=== PATIENT | female | born 1990 | race African-American/Black ===

== ENCOUNTER 2016-09-20 14:51 | Emergency (ER) | payer MEDICAID ==
[~2016-09-20] VITALS: Ht 149.9 cm; Wt 56.7 kg
[~2016-09-20 14:51] MED LIST: FERROUS SULFAT325 MG ORAL; IBUPROFEN600 MG ORAL; NKM; OVCON-351 EACH PO
[2016-09-20] MEDS ORDERED: Albuterol ud Inhalation HHN ONE (15:15)
--- NOTE | 2016-09-20 15:18 | Emergency Room Report ---
History of Present Illness General Chief Complaint: Flu Like Symptoms Source: Patient (Elisa Jha) Present Illness HPI 25 YO female presents to ED c/o cough, wheezing, nasal congestion x 3 days. reports subjective fevers and chills. took IBU 800 [employer]. denies recent travel. reports ill contact being treated for pneumonia ( her bf's nephew). pt denies productive cough. pt. reports wheezing as the main symptom. denies abdominal pain, rashes, neck pain/stiffness. Denies CP, Palpitations, LOC, AMS, dizziness , Changes in Vision, Sensation, paresthesias, or a sudden severe headache. (Elisa Jha) Allergies: Coded Allergies: No Known Allergies (Unverified , 07/14/13) Patient History Past Medical History: see triage record Past Surgical History: none Pertinent Family History: none Last Menstrual Period: 09/15/2016 Now: No : 0 Para: 0 Immunizations: UTD Reviewed Nursing Documentation: PMH: Agreed, PSxH: Agreed (Elisa Jha) Nursing Documentation-PMH Past Medical History: No Stated History (Elisa Jha) Review of Systems All Other Systems: negative except mentioned in HPI (Elisa Jha) Physical Exam Vital Signs Date Time Temp Pulse Resp B/P Pulse Ox O2 Delivery O2 Flow Rate FiO2 09/20/16 15:02 98.2 82 22 114/84 96 Room Air Sp02 EP Interpretation: reviewed, normal General Appearance: no apparent distress, alert, GCS 15, non-toxic Head: normocephalic, atraumatic Eyes: bilateral eye PERRL, bilateral eye normal inspection ENT: hearing grossly normal, normal pharynx, no angioedema, normal voice, TMs + canals normal, uvula midline Neck: full range of motion, supple/symm/no masses Respiratory: speaking full sentences, wheezing - expiratory and inspiratory wheezes bilaterally Cardiovascular #1: regular rate, rhythm, no edema, normal capillary refill Gastrointestinal: non tender, soft, no guarding, no rebound Rectal: deferred Genitourinary: normal inspection, no CVA tenderness Musculoskeletal: back normal, gait/station normal, normal range of motion, non- tender, no calf tenderness Neurologic: alert, oriented x3, responsive, motor strength/tone normal, sensory intact, speech normal Psychiatric: judgement/insight normal, memory normal, mood/affect normal, no suicidal/homicidal ideation Reflexes: 4+ bicep (R), 4+ bicep (L), 4+ tricep (R), 4+ tricep (L), 4+ knee (R) , 4+ knee (L) Skin: normal color, no rash, warm/dry, well hydrated Lymphatic: no adenopathy (Elisa Jha) Medical Decision Making PA Attestation Dr. Berman is my supervising Physician whom patient management has been discussed with. (Elisa Jha) Diagnostic Impression: Primary Impression: Bronchitis ER Course 25 YO female presents to ED c/o cough, wheezing, nasal congestion x 3 days. reports fevers and chills. took IBU 800 [employer]. denies recent travel. reports ill contact being treated for pneumonia ( her bf's nephew). denies abdominal pain , rashes, neck pain/stiffness Ddx considered but are not limited to URI, pneumonia, PE, strep pharyngitis, meningitis. Vital signs: Pt.is afebrile VS are WNL H&PE are most consistent with bronchitis, no evidence to suggest pneumonia at this time, no oral pharynx involvement, mild nasal congestion and rhinorrhea noted, no evidence of meningitis. ORDERS: none required at this time, the diagnosis is clinical ED INTERVENTIONS: -Albuterol Nebulized treatment --- upon re-evaluation pt. has scant wheezes, however wheezing has tremendously improved from initial assessment. DISCHARGE: At this time pt. is stable for d/c to home. Will provide printed patient care instructions, and any necessary prescriptions. Care plan and follow up instructions have been discussed with the patient prior to discharge. (Elisa Jha) ER Course I evaluated this patient in the ED at [facility] with my advanced practice provider (Physician Manager Supplier) colleague, who practices under my general supervision. My impressions concur with the advanced practice provider in regards to their obtained history of present illness, physical exam, general management, diagnosis, and disposition. In particular, I agree with PA-obtained interpretation of imaging, rhythm strip. For the evening and overnight shifts, we do not have the benefit of an in-house Radiologist to review xrays so our interpretation may be limited. Patients are to be discharged only with normal vital signs (or if we discussed a particular exception), a plan for follow-up care, and understand to return to the ED for worsening symptoms. Please see midlevel healthcare providers note for further details. (ANSELMO BERMAN M.D.) Last Vital Signs Date Time Temp Pulse Resp B/P Pulse Ox O2 Delivery O2 Flow Rate FiO2 09/20/16 15:02 98.2 82 22 114/84 96 Room Air (Elisa Jha) Disposition: HOME, SELF-CARE Condition: Stable Scripts Loratadine (CLARITIN) 10 Mg Tab.rapdis 10 MG ORAL DAILY for 14 Days, #14 TAB Prov: Elisa Jha 09/20/16 Guaifenesin (Guaifenesin) 1,200 Mg Tab.er.12h 1200 MG PO BID for 10 Days, #20 TAB Prov: Elisa Jha 09/20/16 Albuterol Sulfate* (ALBUTEROL SULFATE MDI*) 8.5 Gm Hfa.aer.ad 2 PUFF INH Q3H, #1 INH 0 Refills Prov: Elisa Jha 09/20/16 Codeine/Promethazine Hcl* (PROMETHAZINE-CODEINE SYRUP*) 118 Ml Syrup 5 ML ORAL Q6H, #118 ML 0 Refills Prov: Elisa Jha 09/20/16 Patient Instructions: Acute Bronchitis, [id number] Additional Instructions: Take medications as directed. Follow up with PCP in 3-5 days Return sooner to ED if new symptoms occur, or current symptoms become worse. Do not drink alcohol, drive, or operate heavy machinery while taking cough syrup as this may cause drowsiness. - Please note that this Emergency Department Report was dictated using [employer] analyst technology software, occasionally this can lead to erroneous entry secondary to interpretation by the dictation equipment. Elisa Jha Sep 20, 2016 15:18 ANSELMO BERMAN M.D. Sep 23, 2016 14:03
[2016-09-20 15:50] VITALS: BP 118/82
[2016-09-20] MEDS ORDERED: PROMETHAZINE-C118 M1 ORAL (16:10)
[2016-09-20] MEDS ORDERED: CLARITIN10 M1 ORAL (16:10)
[2016-09-20] MEDS ORDERED: ALBUTEROL SULF8.5 GM INH (16:10)
[2016-09-20] MEDS ORDERED: GUAIFENESIN1200 MG PO (16:10)
[2016-09-20 16:22] VITALS: BP 118/82
== END 2016-09-20 16:22 | disposition home or self-care (01) ==
LOC: EMR 15:25 → EDUNIT# 15:25 → EMR 16:22
DX: J20.9 Acute bronchitis, unspecified (principal)
CPT/HCPCS: 99284

== ENCOUNTER 2017-10-04 00:39 | Emergency (ER) | payer SELFPAY ==
[~2017-10-04] VITALS: Ht 149.9 cm; Wt 66.2 kg
[~2017-10-04 00:39] MED LIST changes: +ALBUTEROL SULF8.5 GM INH; +CLARITIN10 M1 ORAL; +GUAIFENESIN1200 MG PO; +PROMETHAZINE-C118 M1 ORAL
[2017-10-04 01:00] VITALS: BP 128/76
[2017-10-04] MEDS ORDERED: LET 3ml Soln TOPIC ONE (01:00)
--- NOTE | 2017-10-04 01:50 | Emergency Room Report ---
History of Present Illness General Chief Complaint: Laceration Source: Patient Present Illness HPI This is a 26-year-old female who is right-hand dominant. She presents with a laceration to her right third finger. Her zipper on her purse was stuck and she was pulling on it and her finger got caught in zipper and sustained a laceration. No active bleeding. Pain is throbbing in nature. No other injury. Occurred just prior to arrival. Allergies: Coded Allergies: No Known Allergies (Unverified , 07/14/13) Patient History Past Medical History: see triage record, old chart reviewed Past Surgical History: none Pertinent Family History: none Last Menstrual Period: 09/21/17 Now: No : 0 Para: 0 Immunizations: other Reviewed Nursing Documentation: PMH: Agreed; PSxH: Agreed Nursing Documentation-PMH Past Medical History: No Stated History Review of Systems Eye: Denies: eye pain, blurred vision ENT: Denies: ear pain, nose congestion, throat swelling Respiratory: Denies: cough, shortness of breath Cardiovascular: Denies: chest pain, palpitations Gastrointestinal: Denies: abdominal pain, diarrhea, nausea, vomiting Musculoskeletal: Denies: back pain, joint pain Skin: Denies: rash Neurological: Denies: headache, numbness Endocrine: Denies: increased thirst, increased urine Hematologic/Lymphatic: Denies: easy bruising All Other Systems: negative except mentioned in HPI Physical Exam Vital Signs Date Time Temp Pulse Resp B/P (MAP) Pulse Ox O2 Delivery O2 Flow Rate FiO2 10/04/17 00:43 98.3 94 18 128/76 100 Room Air 98.2 vitals normal Sp02 EP Interpretation: reviewed, normal General Appearance: well appearing, no apparent distress, alert Head: normocephalic, atraumatic Eyes: bilateral eye PERRL, bilateral eye EOMI ENT: hearing grossly normal, normal pharynx Neck: full range of motion, supple, no meningismus Respiratory: chest non-tender, lungs clear, normal breath sounds Cardiovascular #1: regular rate, rhythm, no murmur Gastrointestinal: normal bowel sounds, non tender, no mass, no organomegaly, no bruit, non-distended Musculoskeletal: back normal, gait/station normal, normal range of motion, other - Right third finger: On the volar aspect of the middle phalanx, there is a 4 cm superficial laceration. Full range of motion of the MCP, PIP, and DIP joints. Sensation normal. No foreign body. No tendon laceration. Psychiatric: mood/affect normal Skin: warm/dry Procedures Laceration/Wound Repair Laceration/Wound Repair : Consent: Verbal Wound Location: upper extremity Wound's Depth, Shape: superficial Wound Length (cm): 4 Wound Repaired With: Dermabond Patient Tolerated: Well Complications: None Progress I placed LET on the wound. After 15-20 minutes, I cleaned the area. It was very superficial. I placed adhesive glue on it. Patient tolerated procedure without a problem. Medical Decision Making Diagnostic Impression: Primary Impression: Laceration of finger Qualified Codes: S61.212A - Laceration without foreign body of right middle finger without damage to nail, initial encounter ER Course Patient with superficial finger laceration. No evidence of tendon involvement or foreign body. We'll discharge home. Last Vital Signs Date Time Temp Pulse Resp B/P (MAP) Pulse Ox O2 Delivery O2 Flow Rate FiO2 10/04/17 01:00 98.2 94 18 128/76 100 Room Air 98.2 Status: improved Disposition: HOME, SELF-CARE Condition: Stable Referrals: NOT CHOSEN IPA/,REFERRING (PCP) Patient Instructions: Nonsutured Laceration Care Additional Instructions: Follow-up with your doctor in 7 days as needed. Return if worse. NATHAN CERRATO M.D. Oct 04, 2017 01:50
[2017-10-04 02:05] VITALS: BP 128/76
== END 2017-10-04 02:05 | disposition home or self-care (01) ==
LOC: EMR 01:32
DX: S61.212A Laceration without foreign body of right middle finger without damage to nail, initial encounter (principal); W26.9XXA Contact with unspecified sharp object(s), initial encounter; Y92.9 Unspecified place or not applicable
CPT/HCPCS: 99284

== ENCOUNTER 2018-04-04 20:08 | Emergency (ER) | payer SELFPAY ==
[~2018-04-04] VITALS: Ht 149.9 cm; Wt 52.2 kg
[2018-04-04] MEDS ORDERED: ONDANSETRON ODT4 MG BC (20:25)
[2018-04-04 20:30] VITALS: BP 112/72
[2018-04-04 20:34] VITALS: BP 110/68
--- NOTE | 2018-04-06 15:44 | Emergency Room Report ---
History of Present Illness General Chief Complaint: Vomiting Source: Patient Present Illness HPI 27-year-old female presents ED for evaluation. Patient states she had 2 episodes of vomiting today at work. Occurred shortly after eating lunch. States she feels fine now. Patient was told by her work to "get checked out". Has had food and drink since and has tolerated. Denies any abdominal pain. Denies any nausea. Denies any flank pain. Denies any dysuria or hematuria. States she is on her period. No other aggravating relieving factors. Denies any other associated symptoms Allergies: Coded Allergies: No Known Allergies (Unverified , 07/14/13) Patient History Past Medical History: none Past Surgical History: none Pertinent Family History: none Social History: Denies: smoking, alcohol use, drug use Now: No Immunizations: UTD Reviewed Nursing Documentation: PMH: Agreed; PSxH: Agreed Nursing Documentation-PMH Past Medical History: No Stated History Review of Systems All Other Systems: negative except mentioned in HPI Physical Exam Vital Signs Date Time Temp Pulse Resp B/P (MAP) Pulse Ox O2 Delivery O2 Flow Rate FiO2 04/04/18 20:11 98.8 74 16 110/68 98 Room Air 98.8 Sp02 EP Interpretation: reviewed, normal General Appearance: no apparent distress, alert, GCS 15, non-toxic Head: normocephalic, atraumatic Eyes: bilateral eye normal inspection, bilateral eye PERRL ENT: hearing grossly normal, normal pharynx, no angioedema, normal voice Neck: full range of motion, supple/symm/no masses Respiratory: chest non-tender, lungs clear, normal breath sounds, speaking full sentences Cardiovascular #1: regular rate, rhythm, no edema Cardiovascular #2: 2+ carotid (R), 2+ carotid (L), 2+ radial (R), 2+ radial (L) , 2+ dorsalis pedis (R), 2+ dorsalis pedis (L) Gastrointestinal: normal bowel sounds, non tender, soft, non-distended, no guarding, no rebound Rectal: deferred Genitourinary: normal inspection, no CVA tenderness Musculoskeletal: back normal, gait/station normal, normal range of motion, non- tender Neurologic: alert, oriented x3, responsive, motor strength/tone normal, sensory intact, speech normal Psychiatric: judgement/insight normal, memory normal, mood/affect normal, no suicidal/homicidal ideation Reflexes: 3+ bicep (R), 3+ bicep (L), 3+ tricep (R), 3+ tricep (L), 3+ knee (R) , 3+ knee (L) Skin: normal color, no rash, warm/dry, well hydrated Lymphatic: no adenopathy Medical Decision Making Diagnostic Impression: Primary Impression: Vomiting Qualified Codes: R11.11 - Vomiting without nausea ER Course Hospital Course 27 yo F presents to ED c/o vomiting x 2 earlier today. Differential diagnoses include: UTI, gastritis, dehydration Clinical course Patient placed on stretcher. After initial history, physical exam reveals a young female in no acute distress. Abdomen soft. No CVA tenderness. Patient denies dysuria. Vital stable. Patient appears well. States that she's had food and drink since and has tolerated. I see no reason for workup at this time. Patient agrees. Diagnosis - vomiting Stable and discharged home with Rx zofran. Instructed to followup with PMD. Return to ED if symptoms recur or worsen Last Vital Signs Date Time Temp Pulse Resp B/P (MAP) Pulse Ox O2 Delivery O2 Flow Rate FiO2 04/04/18 20:34 98.8 70 16 110/68 98 Room Air 98.8 Status: improved Disposition: HOME, SELF-CARE Condition: Stable Scripts Ondansetron Odt* (ZOFRAN ODT*) 4 Mg Tab.rapdis 4 MG BC EVERY 6 HOURS PRN for Nausea & Vomiting, #20 TAB 0 Refills Prov: Lucius Peace MD 04/04/18 Referrals: NOT CHOSEN IPA/,REFERRING (PCP) [facility] Departure Forms: Return to Work Return to Work Date: Apr 05, 2018 Work Restrictions: None Patient Instructions: Nausea and Vomiting, Adult Lucius Peace MD Apr 06, 2018 15:44
== END 2018-04-04 20:35 | disposition home or self-care (01) ==
LOC: EMR 20:20
DX: R11.10 Vomiting, unspecified (principal); F17.200 Nicotine dependence, unspecified, uncomplicated
CPT/HCPCS: 99282

== ENCOUNTER 2019-07-25 11:03 | Emergency (ER) | payer SELFPAY ==
[~2019-07-25] VITALS: Ht 149.9 cm; Wt 65.8 kg
[~2019-07-25 11:03] MED LIST changes: +ONDANSETRON ODT4 MG BC
[2019-07-25] MEDS ORDERED: Albuterol/Ipratropium 3ml neb HHN ONE (11:30)
--- NOTE | 2019-07-25 11:31 | Emergency Room Report ---
History of Present Illness General Chief Complaint: Flu Like Symptoms Source: Patient Present Illness HPI Patient is a 28-year-old female denies any significant past medical history except for an episode of bronchitis 3 years ago who presents to the ER complaining of flulike symptoms for the past several days. Patient complains of myalgias, cough, nasal congestion and subjective fever. Patient states that last night she started wheezing which prompted her to come to the emergency room. Patient denies any chills. She denies any chest pain or shortness of breath. She denies any abdominal pain, nausea or vomiting. She denies any sick contacts. She does state that she smokes marijuana daily. Allergies: Coded Allergies: No Known Allergies (Unverified , 07/14/13) Patient History Past Medical History: none Past Surgical History: none Social History: Reports: drug use - marijuana daily Last Menstrual Period: 06/18/19 Now: No : 0 Reviewed Nursing Documentation: PSxH: Agreed Nursing Documentation-PMH Past Medical History: No Stated History Hx Cardiac Problems: No - bronchitis Hx Hypertension: No Hx Pacemaker: No Hx Asthma: No Hx COPD: No Hx Diabetes: No Hx Cancer: No Hx Gastrointestinal Problems: No Hx Dialysis: No History Of Psychiatric Problem: No Hx Neurological Problems: No Hx Cerebrovascular Accident: No Hx Seizures: No Review of Systems All Other Systems: negative except mentioned in HPI Physical Exam Vital Signs Date Time Temp Pulse Resp B/P (MAP) Pulse Ox O2 Delivery O2 Flow Rate FiO2 07/25/19 11:09 98.1 83 17 120/76 (91) 97 Room Air Sp02 EP Interpretation: reviewed, normal - Nebulizer treatment ordered General Appearance: no apparent distress, alert, GCS 15, non-toxic Head: normocephalic, atraumatic Eyes: bilateral eye normal inspection, bilateral eye PERRL ENT: hearing grossly normal, normal pharynx, no angioedema, normal voice, nasal congestion Neck: full range of motion, supple, no meningismus, supple/symm/no masses Respiratory: no respiratory distress, no retraction, no accessory muscle use, wheezing Cardiovascular #1: regular rate, rhythm, no edema Gastrointestinal: normal bowel sounds, non tender, soft, non-distended, no guarding, no rebound Rectal: deferred Genitourinary: normal inspection, no CVA tenderness Musculoskeletal: back normal, normal range of motion, calf tenderness, gait/ station normal, non-tender Neurologic: alert, motor strength/tone normal, oriented x3, sensory intact, responsive, speech normal Psychiatric: judgement/insight normal, memory normal, mood/affect normal, no suicidal/homicidal ideation Lymphatic: no adenopathy Medical Decision Making Diagnostic Impression: Primary Impression: Bronchopneumonia ER Course Patient's vital signs are stable. Patient is in no acute distress. Patient is improved after her breathing treatment and 600 milligrams of oral Motrin. Chest x-ray demonstrates no evidence of infiltrate. After discussing risks and benefits of further diagnostics, treatment plans, as well as indications for and risks of admission, the patient is agreeable to being discharged home. I have explained that their evaluation and treatment in the emergency department today is an important step towards them achieving better health but that their evaluation today is not intended to replace further evaluation and treatment by a physician in their local clinic. I have explained that while the current findings suggest no immediate life threatening emergency they will require further evaluation and treatment by a physician of their choice in their area. They understand that it will be necessary for them to review the final reports of their ED visit with their clinic physician. We have reviewed indications for return to the Emergency Department. I have explained that additional time may need to pass and/or additional testing as an outpatient may be necessary before a definitive diagnosis can be made. They tell me they are willing to follow up as instructed within the timeframe I recommend. They appear to understand what we discussed. Additionally they understand that if they are unable to be seen by an outpatient physician they are welcome, and in fact should, return to the Emergency Department for a repeat evaluation. The patient is stable at time of discharge. Last Vital Signs Date Time Temp Pulse Resp B/P (MAP) Pulse Ox O2 Delivery O2 Flow Rate FiO2 07/25/19 11:09 98.1 83 17 120/76 (91) 97 Room Air Disposition: HOME, SELF-CARE Condition: Improved Scripts Ibuprofen* (MOTRIN*) 600 Mg Tablet 600 MG ORAL FOUR TIMES A DAY, #30 TAB 0 Refills Prov: Basia Richey M.D. 07/25/19 Albuterol Sulfate* (PROAIR HFA*) 8.5 Gm Hfa.aer.ad 1 PUFF INH Q6H PRN for For Cough, #8.5 GM 0 Refills Prov: Basia Richey M.D. 07/25/19 Azithromycin* (ZITHROMAX*) 250 Mg Tablet 250 MG ORAL DAILY, #6 TAB 0 Refills Take two tables once daily for 1 day, then one tablet once daily for 4 days. Prov: Basia Richey M.D. 07/25/19 Patient Instructions: Acute Bronchitis Additional Instructions: Patient will follow up with her primary care physician in 1 to 2 days for further treatment and evaluation. Basia Richey M.D. Jul 25, 2019 11:31
[2019-07-25 11:32] VITALS: BP 120/76
--- NOTE | 2019-07-25 11:34 | NUR ---
ED Nurse Note:pt. came with flu like symptoms, c/o sore throat and headache, flu swab sent to labs
--- NOTE | 2019-07-25 11:44 | NUR ---
ED Nurse Note: urine sample sent down to lab. RT at bedside providing breathing Tx
--- NOTE | 2019-07-25 12:04 | NUR ---
ED Nurse Note: X ray at bedside
--- NOTE | 2019-07-25 12:12 | NUR ---
ED Nurse Note: Report given to Starla Albert RN. Endorsed plan of care.
[2019-07-25] MEDS ORDERED: IBUPROFEN600 MG ORAL (12:24)
[2019-07-25] MEDS ORDERED: PROAIR HFA8.5 GM INH (12:24)
[2019-07-25] MEDS ORDERED: ZITHROMAX250 MG ORAL (12:24)
--- NOTE | 2019-07-25 12:25 | Diagnostic Imaging Report ---
Indication: Dyspnea Comparison: None A single view chest radiograph was obtained. Findings: Cardiomediastinal appearance is within normal limits for age. The lungs are clear. Pulmonary vascularity is appropriate. The diaphragmatic contour is smooth and costophrenic angles are sharp. No pleural effusions are identified. The bones are unremarkable. Impression: No acute findings
[2019-07-25 12:35] VITALS: BP 120/76
--- NOTE | 2019-07-25 12:35 | NUR ---
ER DISCHARGE NOTE: Patient is cleared to be discharged per ERMD, pt is aox4, on room air, with stable vital signs. pt was given dc and prescription instructions, pt was able to verbalize understanding, pt is able to ambulate with steady gait. pt took all belongings.
== END 2019-07-25 12:37 | disposition home or self-care (01) ==
LOC: EMR 11:39
DX: J18.0 Bronchopneumonia, unspecified organism (principal); F12.90 Cannabis use, unspecified, uncomplicated
CPT/HCPCS: 71045; 81025; 86710; 99283; J7620